=== PATIENT | female | born 1955 | race Caucasian/White ===

== ENCOUNTER 2016-07-07 14:51 | Emergency (ER) | payer OTHER ==
[2016-07-07] MEDS ORDERED: SODIUM CHLORIDE 0.9% 1,000 ML IV STA (15:41)
--- NOTE | 2016-07-07 15:44 | ED ---
General Adult HPI - General Chief complaint: Neuro Symptoms/Deficit Stated complaint: TIA Symptoms. Sent by Time Seen by Provider: 07/07/16 15:13 Source: patient, RN notes reviewed Mode of arrival: wheelchair Limitations: no limitations - History of Present Illness Initial comments: Patient is a pleasant 61-year-old female presenting to the emergency department with concern for TIA. Patient was sent by the practitioner who works for her neurologist. Patient has been leaning to the left while walking for the past 2- 3 weeks. Symptoms are intermittent. Patient is also having twitching of her right eyelid. Patient questions if she has some weakness of the right eyelid. No confusion. Patient does have a history of TIAs in the past. Patient did have lapse in memory from a time period yesterday. - Related Data Home Medications Medication Instructions Recorded Confirmed Aspirin EC [Ecotrin] 325 mg PO DAILY 07/03/14 07/07/16 Cholecalciferol [Vitamin D3] 2,000 unit PO DAILY 07/07/16 07/07/16 Cyanocobalamin (Vitamin B-12) 1,000 mcg PO DAILY 07/07/16 07/07/16 [Vitamin B-12] Levothyroxine Sodium [Synthroid] 75 mcg PO DAILY 07/07/16 07/07/16 Allergies Allergy/AdvReac Type Severity Reaction Status Date / Time azithromycin Allergy Rash/Hives Verified 07/07/16 15:38 hydrocodone bitartrate Allergy Rash/Hives Verified 07/07/16 15:38 [From Vicodin] iodine Allergy Anaphylaxis Verified 07/07/16 15:38 Sulfa (Sulfonamide Allergy Rash/Hives Verified 07/07/16 15:38 Antibiotics) Review of Systems ROS Statement: Those systems with pertinent positive or pertinent negative responses have been documented in the HPI. ROS Other: All systems not noted in ROS Statement are negative. Constitutional: Denies: fever Eyes: Denies: eye pain ENT: Denies: ear pain Respiratory: Denies: cough Cardiovascular: Denies: chest pain Endocrine: Denies: fatigue Gastrointestinal: Denies: abdominal pain Genitourinary: Denies: dysuria Musculoskeletal: Denies: back pain Skin: Denies: rash Neurological: Denies: headache Past Medical History Past Medical History: CVA/TIA, Thyroid Disorder Additional Past Medical History / Comment(s): tia 2013 with short term memory loss at times History of Any Multi-Drug Resistant Organisms: None Reported Past Surgical History: Tubal Ligation Additional Past Surgical History / Comment(s): ovarian cyst removal Past Anesthesia/Blood Transfusion Reactions: Postoperative Nausea & Vomiting ( PONV) Past Psychological History: No Psychological Hx Reported Smoking Status: Never smoker Past Alcohol Use History: Occasional Past Drug Use History: None Reported General Exam Limitations: no limitations General appearance: alert, in no apparent distress Head exam: Present: atraumatic, normocephalic Eye exam: Present: normal appearance, PERRL, EOMI. Absent: nystagmus Pupils: Present: other (No eyelid weakness) ENT exam: Present: normal oropharynx Neck exam: Present: normal inspection Respiratory exam: Present: normal lung sounds bilaterally Cardiovascular Exam: Present: regular rate, normal rhythm GI/Abdominal exam: Present: soft. Absent: tenderness Extremities exam: Present: normal inspection Neurological exam: Present: alert, oriented X3, CN II-XII intact. Absent: motor sensory deficit Expanded Patient oriented to: Present: person, place, time Speech: Present: fluid speech Cranial nerves: EOM's Intact: Normal, Facial Sensation: Normal Cerebellar function: Finger to Nose: Normal Sensory exam: Upper Extremity Light Touch: Normal, Lower Extremity Light Touch: Normal Motor strength exam: RUE: 5, LUE: 5, RLE: 5, LLE: 5 Eye Response: (4) open spontaneously Motor Response: (6) obeys commands Verbal Response: (5) oriented Psychiatric exam: Present: normal affect, normal mood Skin exam: Absent: rash Course Vital Signs 07/07/16 07/07/16 15:00 16:23 Temperature 98.1 F Pulse Rate 73 68 Respiratory 20 18 Rate Blood Pressure 129/78 141/75 O2 Sat by Pulse 100 100 Oximetry EKG Findings - EKG Comments: EKG Findings:: Normal sinus rhythm at 76. MD 112. QRS 98. QT 386. QTc 434. Normal axis. Incomplete right bundle-branch block. No acute ST change. Medical Decision Making - Medical Decision Making Patient reevaluated and resting comfortably in bed. Patient is symptom-free at this time. Patient is advised for admission and further evaluation including neurology evaluation and MRI. Patient refuses this. Patient states she has to go home secondary to work reasons. Patient refuses stay in the hospital and refuses to stay overnight. Patient is aware she will need to leave AGAINST MEDICAL ADVICE. Patient is aware of risks. Patient does demonstrate medical decision making. Patient is agreeable to close follow-up with her neurologist again. Patient states she did not actually see her neurologist today and just talk to them on the phone. - Lab Data Result diagrams: 07/07/16 15:15 07/07/16 15:15 Lab Results 07/07/16 07/07/16 07/07/16 Range/Units 15:15 15:15 15:15 WBC 4.3 (3.8-10.6) k/uL RBC 4.04 (3.80-5.40) m/uL Hgb 13.5 (11.4-16.0) gm/dL Hct 39.4 (34.0-46.0) % MCV 97.6 (80.0-100.0) fL MCH 33.4 (25.0-35.0) pg MCHC 34.2 (31.0-37.0) g/dL RDW 12.2 (11.5-15.5) % Plt Count 235 (150-450) k/uL Neutrophils % 68 % Lymphocytes % 24 % Monocytes % 5 % Eosinophils % 1 % Basophils % 0 % Neutrophils # 2.9 (1.3-7.7) k/uL Lymphocytes # 1.0 (1.0-4.8) k/uL Monocytes # 0.2 (0-1.0) k/uL Eosinophils # 0.1 (0-0.7) k/uL Basophils # 0.0 (0-0.2) k/uL PT (9.0-12.0) sec INR (<1.1) APTT (22.0-30.0) sec Sodium 140 (137-145) mmol/L Potassium 4.0 (3.5-5.1) mmol/L Chloride 100 (98-107) mmol/L Carbon Dioxide 29 (22-30) mmol/L Anion Gap 11 mmol/L BUN 9 (7-17) mg/dL Creatinine 0.77 (0.52-1.04) mg/dL Est GFR (MDRD) Af Amer >60 (>60 ml/min/1.73 sqM) Est GFR (MDRD) Non-Af >60 (>60 ml/min/1.73 sqM) Glucose 126 H (74-99) mg/dL Calcium 9.4 (8.4-10.2) mg/dL Total Bilirubin 0.7 (0.2-1.3) mg/dL AST 25 (14-36) U/L ALT 34 (9-52) U/L Alkaline Phosphatase 52 (38-126) U/L Total Creatine Kinase 55 (30-135) U/L CK-MB (CK-2) 0.7 (0.0-2.4) ng/mL CK-MB (CK-2) Rel Index 1.3 Troponin I <0.012 (0.000-0.034) ng/mL Total Protein 7.3 (6.3-8.2) g/dL Albumin 4.4 (3.5-5.0) g/dL 07/07/16 Range/Units 15:15 WBC (3.8-10.6) k/uL RBC (3.80-5.40) m/uL Hgb (11.4-16.0) gm/dL Hct (34.0-46.0) % MCV (80.0-100.0) fL MCH (25.0-35.0) pg MCHC (31.0-37.0) g/dL RDW (11.5-15.5) % Plt Count (150-450) k/uL Neutrophils % % Lymphocytes % % Monocytes % % Eosinophils % % Basophils % % Neutrophils # (1.3-7.7) k/uL Lymphocytes # (1.0-4.8) k/uL Monocytes # (0-1.0) k/uL Eosinophils # (0-0.7) k/uL Basophils # (0-0.2) k/uL PT 10.8 (9.0-12.0) sec INR 1.1 (<1.1) APTT 23.1 (22.0-30.0) sec Sodium (137-145) mmol/L Potassium (3.5-5.1) mmol/L Chloride (98-107) mmol/L Carbon Dioxide (22-30) mmol/L Anion Gap mmol/L BUN (7-17) mg/dL Creatinine (0.52-1.04) mg/dL Est GFR (MDRD) Af Amer (>60 ml/min/1.73 sqM) Est GFR (MDRD) Non-Af (>60 ml/min/1.73 sqM) Glucose (74-99) mg/dL Calcium (8.4-10.2) mg/dL Total Bilirubin (0.2-1.3) mg/dL AST (14-36) U/L ALT (9-52) U/L Alkaline Phosphatase (38-126) U/L Total Creatine Kinase (30-135) U/L CK-MB (CK-2) (0.0-2.4) ng/mL CK-MB (CK-2) Rel Index Troponin I (0.000-0.034) ng/mL Total Protein (6.3-8.2) g/dL Albumin (3.5-5.0) g/dL - Radiology Data Radiology results: image reviewed (Computed tomography scan the brain shows no acute process. Chest x-ray shows no acute process.) Disposition Clinical Impression: Transient cerebral ischemia Disposition: Left Against Medical Advice Instructions: Transient Ischemic Attack (ED) Additional Instructions: Please follow-up tomorrow with your neurologist and your primary care physician. Return for weakness, confusion, loss of sensation, speech problems, difficulty walking, worsening symptoms or other concerns. Referrals: Cezar Roy DO [Primary Care Provider] - 1-2 days Jony Alexis MD [STAFF PHYSICIAN] - 1-2 days
[2016-07-07 15:56] LABS: Basophils % (A) 0 %; CH 33.1; Eosinophils # (A) 0.1 k/uL (0-0.7); Eosinophils % (A) 1 %; HCT 39.4 % (34.0-46.0); HDW 2.37; HGB 13.5 gm/dL (11.4-16.0); Luc # (Auto) 0.09; Luc % (Auto) 2; Lymphocytes % (A) 24 %; MCH 33.4 pg (25.0-35.0); MCHC 34.2 g/dL (31.0-37.0); MCV 97.6 fL (80.0-100.0); Mean Platelet Volume 7.3; Monocytes # (A) 0.2 k/uL (0-1.0); Monocytes % (A) 5 %; Neutrophils # (A) 2.9 k/uL (1.3-7.7); Neutrophils % (A) 68 %; RBC 4.04 m/uL (3.80-5.40); RDW 12.2 % (11.5-15.5); WBC 4.3 k/uL (3.8-10.6); WBC (Perox) 4.36
[2016-07-07 16:05] LABS: ALT 34 U/L (9-52); AST 25 U/L (14-36); Alkaline Phosphatase 52 U/L (38-126); Anion Gap 11 mmol/L; Blood Urea Nitrogen 9 mg/dL (7-17); Calcium 9.4 mg/dL (8.4-10.2); Carbon Dioxide 29 mmol/L (22-30); Chloride 100 mmol/L (98-107); Glucose 126 mg/dL (74-99); Non-African American GFR(MDRD) >60 (>60 ml/min/1.73 sqM); Sodium 140 mmol/L (137-145); Total Bilirubin 0.7 mg/dL (0.2-1.3); Total Protein 7.3 g/dL (6.3-8.2)
[2016-07-07 16:10] LABS: INR 1.1 (<1.1); Partial Thromboplastin Time 23.1 sec (22.0-30.0); Prothrombin Time 10.8 sec (9.0-12.0)
[2016-07-07 16:16] LABS: Creatine Kinase 55 U/L (30-135)
--- NOTE | 2016-07-07 16:18 | XR ---
EXAMINATION TYPE: XR chest 2V DATE OF EXAM: 07/07/2016 4:09 PM COMPARISON: NONE INDICATION: Altered mental status TECHNIQUE: Single frontal view of the chest is obtained. FINDINGS: The heart size is normal. The pulmonary vasculature is normal. The lungs are clear. IMPRESSION: 1. No acute pulmonary process.
--- NOTE | 2016-07-07 16:19 | CT ---
EXAMINATION TYPE: CT brain wo con DATE OF EXAM: 07/07/2016 4:08 PM COMPARISON: 12/13/2011 INDICATION: Patient has history of TIA and has been feeling weird for the past 3 weeks DLP: 1070 mGycm, Automated exposure control for dose reduction was used. CONTRAST: None CT of the brain is performed utilizing 3 mm thick sections through the posterior fossa and 3 mm thick sections through the remaining calvarium. Study is performed within 24 hours of arrival to the hosp ital. No abnormal hyperdensity is present to suggest an acute intracranial hemorrhage. No mass lesion is evident. No acute infarcts are evident. Ventricles and sulci are appropriate for the patient age. Paranasal sinuses and mastoid air cells within the [id number] are clear. IMPRESSIONS: 1. No acute intracranial process.
[2016-07-07 16:29] LABS: Creatine Kinase MB 0.7 ng/mL (0.0-2.4); Troponin I <0.012 ng/mL (0.000-0.034)
[2016-07-07 17:18] VITALS: BP 123/74; PULSE 66; RESP 16; TEMP 97.8
== END 2016-07-07 17:18 | disposition left against medical advice (07) ==
LOC: EC 14:51
DX: G45.9 Transient cerebral ischemic attack, unspecified (principal); E07.9 Disorder of thyroid, unspecified; Z79.82 Long term (current) use of aspirin; Z79.899 Other long term (current) drug therapy; Z88.1 Allergy status to other antibiotic agents; Z88.2 Allergy status to sulfonamides; Z88.5 Allergy status to narcotic agent; Z88.8 Allergy status to other drugs, medicaments and biological substances; Z86.73 Personal history of transient ischemic attack (TIA), and cerebral infarction without residual deficits
CPT/HCPCS: 36415; 70450; 71020; 80053; 82550; 82553; 84484; 85025; 85610; 85730; 93005; 96360; 99284

== ENCOUNTER → 2016-07-21 | Outpatient (CLI) | payer OTHER ==
[2016-07-21 07:51] LABS: Basophils % (A) 1 %; CH 33.1; CHCM 33.5; Eosinophils # (A) 0.1 k/uL (0-0.7); Eosinophils % (A) 3 %; HDW 2.35; Luc % (Auto) 3; Lymphocytes # (A) 0.9 k/uL (1.0-4.8); Lymphocytes % (A) 28 %; MCH 32.3 pg (25.0-35.0); MCHC 32.5 g/dL (31.0-37.0); MCV 99.2 fL (80.0-100.0); Mean Platelet Volume 6.6; Monocytes # (A) 0.2 k/uL (0-1.0); Monocytes % (A) 6 %; Neutrophils # (A) 1.9 k/uL (1.3-7.7); Neutrophils % (A) 60 %; RBC 4.04 m/uL (3.80-5.40); RDW 12.3 % (11.5-15.5); WBC 3.2 k/uL (3.8-10.6); WBC (Perox) 3.21
[2016-07-21 10:13] LABS: ALT 41 U/L (9-52); AST 31 U/L (14-36); Alkaline Phosphatase 52 U/L (38-126); Anion Gap 8 mmol/L; Blood Urea Nitrogen 15 mg/dL (7-17); Calcium 9.4 mg/dL (8.4-10.2); Carbon Dioxide 30 mmol/L (22-30); Chloride 102 mmol/L (98-107); Cholesterol 175 mg/dL (<200); Glucose 86 mg/dL (74-99); HDL Cholesterol 93 mg/dL (40-60); Iron 106 ug/dL (37-170); Non-African American GFR(MDRD) >60 (>60 ml/min/1.73 sqM); Potassium 4.6 mmol/L (3.5-5.1); Sodium 140 mmol/L (137-145); Total Bilirubin 0.7 mg/dL (0.2-1.3); Total Protein 6.7 g/dL (6.3-8.2); Triglycerides 48 mg/dL (<150)
[2016-07-21 10:24] LABS: % Iron Saturation 34.9 % (20-50); Total Iron Binding Capacity 304 ug/dL (265-497)
[2016-07-21 11:04] LABS: Vitamin B12 864 pg/mL (239-931)
== END | disposition home or self-care (01) ==
LOC: LABWHC1 06:57
PROVIDERS: ATTEND Nurse Practitioner Acute Care
DX: G45.9 Transient cerebral ischemic attack, unspecified (principal); E55.9 Vitamin D deficiency, unspecified
CPT/HCPCS: 36415; 80053; 80061; 82306; 82607; 83090; 83540; 83550; 84207; 84439; 84443; 84466; 84481; 85025

== ENCOUNTER → 2016-07-24 | Outpatient (CLI) | payer OTHER ==
--- NOTE | 2016-07-24 14:39 | US ---
EXAMINATION TYPE: US carotid duplex BILAT DATE OF EXAM: 07/24/2016 2:26 PM COMPARISON: See PACS CLINICAL HISTORY: G45.9 TIA. EXAM MEASUREMENTS: RIGHT: Peak Systolic Velocity (PSV) cm/sec ----- Right CCA: 96.8 ----- Right ICA: 112.5 ----- Right ECA: 131.8 ICA/CCA ratio: 1.2 RIGHT: End Diastole cm/sec ----- Right CCA: 35.7 ----- Right ICA: 36.0 ----- Right ECA: 27.4 LEFT: Peak Systolic Velocity (PSV) cm/sec ----- Left CCA: 96.3 ----- Left ICA: 108.1 ----- Left ECA: 64.2 ICA/CCA ratio: 1.1 LEFT: End Diastole cm/sec ----- Left CCA: 33.3 ----- Left ICA: 40.2 ----- Left ECA: 16.2 VERTEBRALS (direction of flow): Right Vertebral: Antegrade Left Vertebral: Antegrade IMPRESSION: 1. I DO NOT SEE EVIDENCE OF A HEMODYNAMICALLY SIGNIFICANT STENOSIS IN EITHER COMMON OR INTERNAL CAROT ID ARTERY. 2. ELEVATED FLOW VELOCITY, RIGHT ECA. Criteria for Assigning % of Stenosis / Diameter reduction (Estimation based on the indirect measurements of the internal carotid artery velocities (ICA PSV). 1. Normal (no stenosis)=ICA PSV < 125 cm/s: ratio < 2.0: ICA EDV<40 cm/s. 2. Less than 50% stenosis=ICA PSV < 125 cm/s: ratio < 2.0: ICA EDV<40 cm/s. 3. 50 to 69% stenosis=ICA PSV of 125 to 230 cm/s: ration 2.0 ? 4.0: ICA EDV 40-100 cm/s. 4. Greater than 70% stenosis to near occlusion= ICA PSV > 230 cm/s: ratio > 4.0: ICA EDV > 100 cm/s. 5. Near occlusion= ICA PSV velocities may be low or undetectable: variable ratio and ICA EDV. 6. Total occlusion=unable to detect flow.
--- NOTE | 2016-07-24 16:22 | MR ---
EXAMINATION TYPE: MR brain wo con DATE OF EXAM: 07/24/2016 4:08 PM COMPARISON: CT brain July 07, 2016. MRI brain January 09, 2012. HISTORY: TIA per order. Symptoms of dizziness or hearing loss per patient with difficulty concentrati ng TECHNIQUE: Multiplanar, multisequence imaging of the brain and brainstem is performed without IV cont rast. FINDINGS: Diffusion weighted images demonstrate no evidence of a recent infarct or other diffusion abnormality. There is no worrisome extra-axial fluid collection. The ventricular system and cisternal spaces are normal in size and appearance. The brain volume is age appropriate. There are some scattered foci T2 hyperintensity seen throughout the white matter bilaterally. Approximately 10-12 scattered lesions a re present. Some progression in number of lesions is identified from prior exam. Midline structures demonstrate normal morphology. The craniocervical junction appears within normal limits. Normal vascular flow voids are present. The visualized sinuses are clear and the globes are i ntact. IMPRESSION: No evidence of a recent infarct. Mild nonspecific white matter changes likely on basis of product of chronic small vessel ischemic change with progression from 2012 MRI noted.
== END | disposition home or self-care (01) ==
LOC: RADUSWWP 14:06
PROVIDERS: ATTEND Psychiatry & Neurology Neurology
DX: R90.82 White matter disease, unspecified (principal); G45.9 Transient cerebral ischemic attack, unspecified
CPT/HCPCS: 70551; 93880

== ENCOUNTER → 2016-09-03 | Outpatient (CLI) | payer OTHER | END | disposition home or self-care (01) | LOC: LABWHC1 07:03 | PROVIDERS: ATTEND Physician Assistant Medical | DX: E03.9 Hypothyroidism, unspecified (principal) | CPT/HCPCS: 36415; 84439; 84443 ==

== ENCOUNTER → 2017-02-09 | Outpatient (CLI) | payer OTHER ==
--- NOTE | 2017-02-09 10:51 | MM ---
Reason for exam: screening (asymptomatic). Last mammogram was performed 1 year and 8 months ago. History: Patient is postmenopausal. Family history of breast cancer in mother. Physical Findings: A clinical breast exam by your physician is recommended on an annual basis and results should be correlated with mammographic findings. MG Screening Mammo w CAD Bilateral CC and MLO view(s) were taken. Prior study comparison: June 20, 2015, bilateral MG screening mammo w CAD. November 17, 2012, bilateral digital screening mammo w/CAD. The breast tissue is heterogeneously dense. This may lower the sensitivity of mammography. Finding: There are typically benign vascular, round calcifications in both breasts. There is no discrete abnormality. ASSESSMENT: Benign, BI-RAD 2 RECOMMENDATION: Routine screening mammogram of both breasts in 1 year.
== END ==
LOC: RADMAMWWP 08:52
PROVIDERS: ATTEND Obstetrics & Gynecology
DX: Z12.31 Encounter for screening mammogram for malignant neoplasm of breast (principal)

== ENCOUNTER → 2017-08-28 | Outpatient (CLI) | payer OTHER ==
[2017-08-28 09:33] LABS: T4, Free (Free Thyroxine) 1.07 ng/dL (0.78-2.19)
== END | disposition home or self-care (01) ==
LOC: LABWHC1 08:16
PROVIDERS: ATTEND Family Medicine
DX: E03.9 Hypothyroidism, unspecified (principal)
CPT/HCPCS: 36415; 84439; 84443

== ENCOUNTER → 2020-11-05 | Outpatient (CLI) | payer OTHER | END | disposition home or self-care (01) | CPT/HCPCS: 76536 ==

== ENCOUNTER → 2021-03-13 | Outpatient (CLI) | payer MEDICARE, BC ==
--- NOTE | 2021-03-13 12:26 | US ---
EXAMINATION TYPE: US thyroid st tissue head/neck DATE OF EXAM: 03/13/2021 COMPARISON: NONE CLINICAL HISTORY: R22.1Swelling mass lump in neck. follow up right lymphadenopathy lymph nodes right neck with largest = 1.3 x 0.4 x 0.9cm IMPRESSION: 1. Right neck lymphadenopathy
== END | disposition home or self-care (01) ==
LOC: RADUSWWP 09:03
PROVIDERS: ATTEND Otolaryngology
DX: R59.0 Localized enlarged lymph nodes (principal)
CPT/HCPCS: 76536

== ENCOUNTER → 2021-05-30 | Outpatient (CLI) | payer MEDICARE, BC ==
--- NOTE | 2021-05-30 12:01 | XR ---
Right foot HISTORY: Pain 3 views the right foot Mild degenerative change present at the metatarsophalangeal joint of the first digit. Bone mineraliza tion is mildly reduced. Joint spaces and alignment are otherwise maintained. IMPRESSION: Mild osteophytic change first metatarsophalangeal joint.
== END | disposition home or self-care (01) ==
LOC: RADXRYALE 11:32
PROVIDERS: ATTEND Physician Assistant
DX: M79.671 Pain in right foot (principal)

== ENCOUNTER → 2022-04-02 | Outpatient (CLI) | payer MEDICARE, BC ==
--- NOTE | 2022-04-02 17:20 | BD ---
EXAMINATION TYPE: Axial Bone Density DATE OF EXAM: 04/02/2022 COMPARISON: NONE CLINICAL HISTORY: 67 years year old Female. ICD-10 CODE: M85.9 disorder of bne density/structure, E0 3.9 69 Height: 133.3 Weight: FRAX RISK QUESTIONS: Alcohol (3 or more units per day): NO Family History (Parent hip fracture): NO Glucocorticoids (More than 3mos): NO History of Fracture in Adulthood: NO Secondary Osteoporosis: 1. Type 1 Diabetes: NO 2. Hyperthyroidism: NO 3. Menopause before 45: NO 4. Malnutrition: NO 5. Chronic liver disease: NO Rheumatoid Arthritis: NO Current Tobacco Use: NO RISK FACTORS HISTORY OF: Hip Fracture (Right/Left): NO Spine Fracture: NO History of Wrist Fracture: NO Surgery to Spine/Hip(right/left)/Wrist (right/left): NO Family History of Osteoporosis: NO Active: YES Diet low in dairy products/other sources of calcium: YES Postmenopausal woman: YES Take estrogen and/or progesterone medications: NO Lost more than 2 inches in height since high school: NO Frequent falls: NO Poor Health: NO Hyperparathyroidism: NO Adrenal Insufficiency: NO MEDICATIONS: Prednisone or other steroids: NO Thyroid Medications: ARMOUR How Long: ABOUT 15 YEARS Osteoporosis Medications: NO Additional Medications: ARMOUR, VIT D, B12, MAGNESIUM, EXAM MEASUREMENTS: Bone mineral densitometry was performed using the [employer] System. Bone mineral density as measured about the Lumbar spine is: ----- L1-L4(G/cm2): 0.937 T Score Values are as follows: ----- L1: -1.8 ----- L2: -2.3 ----- L3: -1.7 ----- L4: -2.4 ----- L1-L4: -2.0 BASELINE STUDY Bone mineral density about the R hip (g/cm2): 0.853 Bone mineral density about the L hip (g/cm2): 0.842 T Score values are as follows: -----R Neck: -1.3 -----L Neck: -1.4 -----R Total: -1.3 -----L Total: -1.6 BASELINE STUDY FRAX%s: The graph provided illustrates a 3.5% chance for a major osteoporotic fx and a 0.7% chance fo r the hips probability for fx in 10 years time. IMPRESSION: Osteopenia (T Score between -2.5 and -1). There is slightly increased risk of fracture and the patient may be considered for treatment. Re-Screen 2-5 years. NOTE: T-SCORE=SD OF THE YOUNG ADULT MEAN.
== END | disposition home or self-care (01) ==
LOC: RADBDWWP 07:16
PROVIDERS: ATTEND Family Medicine
DX: M85.89 Other specified disorders of bone density and structure, multiple sites (principal); E03.9 Hypothyroidism, unspecified
CPT/HCPCS: 77080

== ENCOUNTER 2022-08-17 10:38 | Day surgery (SDC) | payer MEDICARE, BC ==
[2022-08-12 09:24] VITALS: BMI 20.2
[~2022-08-17 10:38] MED LIST: SODIUM CHLORIDE 0.9% 1,000 ML IV SCH
[2022-08-17] MEDS ORDERED: SODIUM CHLORIDE 0.9% 500 ML 500 ML IV ONE (11:06)
[2022-08-17] MEDS ORDERED: LIDOCAINE 1% INJ 10MG/ML (20 ML MDV) SQ ONE (12:41)
[2022-08-17] MEDS ORDERED: LIDOCAINE 1% INJ 10MG/ML (20 ML MDV) ONE (12:41)
--- NOTE | 2022-08-17 13:02 | P.PCN ---
Description of Procedure: Procedure: Explant of Linq loop recorder Indication: Loop recorder, patient desired to have explanted, end of battery life CONSENT:I have discussed the risks, benefits and alternative therapies for the above-mentioned procedure. The patient has indicated understanding and acceptance of the risks and procedures discussed. PROCEDURE: Patient was brought to the catheterization lab in a fasting state. Patient was prepped and draped in the usual fashion. 1% lidocaine was used to anesthetize the area of the left third intercostal space above the existing loop recorder. A small 0.5 cm incision was made with 15 blade. Next the Linq loop recorder was grasped and withdrawn. Next the incision was closed using Dermabond. Steristrips were placed over the incision and the procedure was completed. The patient tolerated the procedure well. The patient was transported to the post cath holding area in stable condition.
[2022-08-17 13:33] VITALS: BP 148/69; PULSE 71; RESP 16; TEMP 97.6
== END 2022-08-17 13:13 | disposition home or self-care (01) ==
LOC: CATHEP 10:38
PROVIDERS: ATTEND Internal Medicine
DX: Z45.010 Encounter for checking and testing of cardiac pacemaker pulse generator [battery] (principal); R00.2 Palpitations
CPT/HCPCS: 33286; J0690; J2001

== ENCOUNTER 2022-11-10 08:23 | Day surgery (SDC) | payer MEDICARE, BC ==
[2022-11-04 09:54] VITALS: BMI 19.2
[~2022-11-10 08:23] MED LIST changes: +LACTATED RINGERS 1,000 ML IV SCH; +LIDOCAINE 1% (10MG/ML) FOR IV START INTRADERMA PRN; -SODIUM CHLORIDE 0.9% 1,000 ML IV SCH
[2022-11-10 08:48] VITALS: RESP 16; TEMP 98.4
[2022-11-10] MEDS ORDERED: PROPOFOL 10 MG/ML 20 ML VIAL IV ONE (08:50)
--- NOTE | 2022-11-10 08:53 | P.GSHP ---
History of Present Illness H&P Date: 11/10/22 Chief Complaint: Colon cancer screening 67-year-old female here today for colonoscopy. As colonoscopy 11 years ago. No bowel complaints. No family history of colon cancer. Past Medical History Past Medical History: CVA/TIA, Thyroid Disorder Additional Past Medical History / Comment(s): tia 2012 with short term memory loss at times History of Any Multi-Drug Resistant Organisms: None Reported Past Surgical History: Tubal Ligation Additional Past Surgical History / Comment(s): ovarian cyst removal , colonoscopy Past Anesthesia/Blood Transfusion Reactions: Postoperative Nausea & Vomiting (PONV) Smoking Status: Never smoker - Past Family History Mother Family Medical History: Cancer Additional Family Medical History / Comment(s): breast Father Additional Family Medical History / Comment(s): tia strokes Medications and Allergies Home Medications Medication Instructions Recorded Confirmed Type Aspirin [Adult Low Dose Aspirin EC] 81 mg PO HS 08/12/22 11/10/22 History Thyroid,Pork [[place] Thyroid] 90 mg PO DAILY 08/12/22 11/10/22 History Allergies Allergy/AdvReac Type Severity Reaction Status Date / Time azithromycin Allergy Rash/Hives Verified 11/10/22 08:40 hydrocodone bitartrate Allergy Rash/Hives Verified 11/10/22 08:40 [From Vicodin] Iodinated Contrast Media Allergy Anaphylaxis Verified 11/10/22 08:40 iodine Allergy Anaphylaxis Verified 11/10/22 08:40 Sulfa (Sulfonamide Allergy Rash/Hives Verified 11/10/22 08:40 Antibiotics) Surgical - Exam Vital Signs Temp Pulse Resp BP Pulse Ox 98.4 F 95 16 122/76 99 11/10/22 08:40 11/10/22 08:40 11/10/22 08:40 11/10/22 08:40 11/10/22 08:40 Physical exam: General: Well-developed, well-nourished HEENT: Normocephalic, sclerae nonicteric Abdomen: Nontender, nondistended Extremities: No edema Neuro: Alert and oriented Assessment and Plan (1) Colon cancer screening Narrative/Plan: Will proceed with colonoscopy at this time. Current Visit: Yes Status: Acute Code(s): Z12.11 - ENCOUNTER FOR SCREENING FOR MALIGNANT NEOPLASM OF COLON SNOMED Code(s): 619624266
--- NOTE | 2022-11-10 09:07 | P.PCN ---
Date of Procedure: 11/10/22 Procedure(s) Performed: PREOPERATIVE DIAGNOSIS: Colon cancer screening POSTOPERATIVE DIAGNOSIS: Diverticulosis PROCEDURE: Colonoscopy ANESTHESIA: MAC SURGEON: Lm Cedeno M.D. SPECIMENS: None ENDOSCOPIC PROCEDURE: The patient was placed on the endoscopy table in the left decubitus position. The Olympus colonoscope was inserted into the anus and passed under direct visualization to the base of the cecum. The appendiceal orifice was visualized. From that point the scope was slowly withdrawn inspe cting all surfaces carefully. There were no neoplastic inflammatory or polypoid lesions throughout the cecum, ascending, transverse, descending, sigmoid and rectum. There was mild scattered left sided diverticulosis noted. Digital rectal examination was normal. The patient was taken to the recovery room in stable condition per anesthesia guidelines. RECOMMENDATIONS: Resume diet. Repeat colonoscopy in 10 years.
[2022-11-10 09:35] VITALS: BP 115/76; PULSE 66
== END 2022-11-10 10:06 | disposition home or self-care (01) ==
LOC: ORWHC2ENDO 08:23
PROVIDERS: ATTEND Surgery
DX: Z12.11 Encounter for screening for malignant neoplasm of colon (principal); K57.30 Diverticulosis of large intestine without perforation or abscess without bleeding; Z86.73 Personal history of transient ischemic attack (TIA), and cerebral infarction without residual deficits; Z98.51 Tubal ligation status; Z82.3 Family history of stroke; Z79.82 Long term (current) use of aspirin; Z79.890 Hormone replacement therapy; Z88.5 Allergy status to narcotic agent; Z79.899 Other long term (current) drug therapy; Z88.2 Allergy status to sulfonamides
CPT/HCPCS: G0121; J2704; 45378

== ENCOUNTER 2023-02-01 22:55 | Emergency (ER) | payer MEDICARE, BC ==
[2023-02-01] MEDS ORDERED: HYDROmorphone 1 MG/ML 1 ML SYRINGE IM STA (23:53)
[2023-02-01] MEDS ORDERED: ACET/COD 300 MG/30 MG STARTER PACK 6 TAB BTL PO STA (23:54)
[2023-02-01] MEDS ORDERED: AMOXIC-POT CLAV 875-125MG 1 EACH TAB PO STA (23:54)
[2023-02-01] MEDS ORDERED: DIPH,PERTUS(ACELL)TETVAC-LF 0.5 ML VIAL IM ONE (23:54)
[2023-02-01] MEDS ORDERED: AMOXIC-POT CLAV 875MG STARTER PACK 2 TAB BTL PO STA (23:54)
[2023-02-01] MEDS ORDERED: GELATIN SPONGE,ABSORB (LARGE) 1 EACH SPONGE TOPICAL STA (23:55)
[2023-02-01] MEDS ORDERED: GELATIN SPONGE,ABSORB (SMALL) 1 EACH SPONGE TOPICAL STA (23:55)
--- NOTE | 2023-02-01 23:56 | ED ---
Animal Bite HPI - General Chief Complaint: Animal Bite Stated Complaint: dog bite Time Seen by Provider: 02/01/23 23:41 Source: family, RN notes reviewed, old records reviewed Mode of arrival: ambulatory Limitations: no limitations - History of Present Illness Initial Comments: This is a 68-year-old female return to the emergency room for evaluation a dog bite. Patient presents today for evaluation regards to severe right thumb pain. Patient with the dog [the patient allegedly and bit the patient's thumb. Patient admits to the top of her thumb with severe pain and bleeding. No blood thinners. No other complaints or injuries. This thought with patient's own dog as a rescue MD Complaint: animal bite -: minutes(s) Right: Hand (Thumb) Animal: dog Description: household pet Mechanism: bite Pain Description: sharp Severity scale (1-10): 10 Context: unprovoked (Unprovoked although patient was being put in his great and she did move the patella) Associated Symptoms: bleeding Treatments Prior to Arrival: wound dressing(s) - Related Data Home Medications Medication Instructions Recorded Confirmed Aspirin [Adult Low Dose Aspirin EC] 81 mg PO HS 08/12/22 11/10/22 Thyroid,Pork [[place] Thyroid] 90 mg PO DAILY 08/12/22 11/10/22 Previous Rx's Medication Instructions Recorded Amoxic-Pot Clav 875-125Mg 1 tab PO Q12HR #20 tablet 02/01/23 [Augmentin 875-125] Allergies Allergy/AdvReac Type Severity Reaction Status Date / Time azithromycin Allergy Rash/Hives Verified 02/01/23 23:18 hydrocodone bitartrate Allergy Rash/Hives Verified 02/01/23 23:18 [From Vicodin] Iodinated Contrast Media Allergy Anaphylaxis Verified 02/01/23 23:18 iodine Allergy Anaphylaxis Verified 02/01/23 23:18 Sulfa (Sulfonamide Allergy Rash/Hives Verified 02/01/23 23:18 Antibiotics) Review of Systems ROS Statement: Those systems with pertinent positive or pertinent negative responses have been documented in the HPI. ROS Other: All systems not noted in ROS Statement are negative. Past Medical History Past Medical History: CVA/TIA, Thyroid Disorder Additional Past Medical History / Comment(s): multiple TIA'S with short term memory loss at times History of Any Multi-Drug Resistant Organisms: None Reported Past Surgical History: Tubal Ligation Additional Past Surgical History / Comment(s): ovarian cyst removal , colonoscopy Past Anesthesia/Blood Transfusion Reactions: Postoperative Nausea & Vomiting (PONV) Past Psychological History: No Psychological Hx Reported Smoking Status: Current some day smoker, Never smoker Past Alcohol Use History: None Reported, Occasional Past Drug Use History: None Reported - Past Family History Mother Family Medical History: Cancer Additional Family Medical History / Comment(s): breast Father Additional Family Medical History / Comment(s): tia strokes General Exam - General Exam Comments Initial Comments: 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 Absent: scleral icterus, conjunctival injection, periorbital swelling ENT exam: Present: normal exam, mucous membranes moist Neck exam: Present: normal inspection. Absent: tenderness, meningismus, lym phadenopathy Respiratory exam: Present: normal lung sounds bilaterally. Absent: respiratory distress, wheezes, rales, rhonchi, stridor Cardiovascular Exam: Present: regular rate, normal rhythm, normal heart sounds. Absent: systolic murmur, diastolic murmur, rubs, gallop, clicks GI/Abdominal exam: Present: soft, normal bowel sounds. Absent: distended, tenderness, guarding, rebound, rigid Extremities exam: Present: normal inspection, full ROM, normal capillary refill. Absent: tenderness, pedal edema, joint swelling, calf tenderness Back exam: Present: normal inspection Neurological exam: Present: alert, oriented X3, CN II-XII intact Psychiatric exam: Present: normal affect, normal mood Skin exam: Present: warm, dry, intact, normal color. Absent: rash Course Vital Signs 02/01/23 02/02/23 23:16 01:30 Temperature 98.7 F 98.2 F Pulse Rate 90 78 Respiratory 18 16 Rate Blood Pressure 145/84 128/78 O2 Sat by Pulse 99 96 Oximetry - Reevaluation(s) Reevaluation #1: 02/02/23 01:02 Record is reviewed Reevaluation #2: 02/02/23 01:02 Patient symptoms are improved Reevaluation #3: 02/02/23 01:02 Patient informed results questions answered Reevaluation #4: 02/02/23 01:02 Was pt. sent in by a medical professional or institution (, PA, AIRLINE PILOT FLIGHT INSTRUCTOR, urgent care, hospital, or longterm...) When possible be specific @ -no Did you speak to anyone other than the patient for history (EMS, parent, family, police, friend...)? What history was obtained from this source @ -no Did you review nursing and triage notes (agree or disagree)? Why? @ -agree Are old charts reviewed (outside hosp., previous admission, EMS record, old EKG, old radiological studies, urgent care reports/EKG's, longterm records)? Report findings @ -yes Differential Diagnosis (chest pain, altered mental status, abdominal pain women, abdominal pain men, vaginal bleeding, weakness, fever, dyspnea, syncope, headache, dizziness, GI bleed, back pain, seizure, CVA, palpatations, mental health, musculoskeletal)? @ -prior EKG interpreted by me (3pts min.). @ -no X-rays interpreted by me (1pt min.). @ -yes CT interpreted by me (1pt min.). @ -no U/S interpreted by me (1pt. min.). @ -no What testing was considered but not performed or refused? (CT, X-rays, U/S, labs)? Why? @ -none What meds were considered but not given or refused? Why? @ -none Did you discuss the management of the patient with other professionals (arianne comer i.e. , PA, AIRLINE PILOT FLIGHT INSTRUCTOR, lab, RT, psych nurse, child welfare social worker, chief engineer production, teacher, conservation enforcement officer, lining caser)? Give summary @ -no Was smoking cessation discussed for >3mins.? @ -no Was critical care preformed (if so, how long)? @ -no Were there social determinants of health that impacted care today? How? (Homelessness, low income, unemployed, alcoholism, drug addiction, transportation, low edu. Level, literacy, decrease access to med. care, mcc, rehab)? @ -none Was there de-escalation of care discussed even if they declined (Discuss DNR or withdrawal of care, Hospice)? DNR status @ -no What co-morbidities impacted this encounter? (DM, HTN, Smoking, COPD, CAD, Cancer, CVA, ARF, Chemo, Hep., AIDS, mental health diagnosis, sleep apnea, morbid obesity)? @ -none Was patient admitted / discharged? Hospital course, mention meds given and route, prescriptions, significant lab abnormalities, going to OR and other pertinent info. @ - 68 female to the emergency department for evaluation. Patient presents today for evaluation regards to traumatic amputation of the distal aspect of right thumb. Patient has bandages placed here in the ER will follow-up with orthopedics for further evaluation and treatment. Discharge Undiagnosed new problem with uncertain prognosis? @ -no Drug Therapy requiring intensive monitoring for toxicity (Heparin, Nitro, Insulin, Cardizem)? @ -no Were any procedures done? @ -no Diagnosis/symptom? @ -Traumatic Dictation right thumb Acute, or Chronic, or Acute on Chronic? @ -Acute Uncomplicated (without systemic symptoms) or Complicated (systemic symptoms)? @ -Complicated Side effects of treatment? @ -no Exacerbation, Progression, or Severe Exacerbation? @ -exacerbation Poses a threat to life or bodily function? How? (Chest pain, [place], OR, pneumonia, PE, COPD, DKA, ARF, appy, cholecystitis, CVA, Diverticulitis, Homicidal, Suicidal, threat to staff... and all critical care pts) @ -yes loss of limb Medical Decision Making - Medical Decision Making 68 female to the emergency department for evaluation. Patient presents today for evaluation regards to traumatic amputation of the distal aspect of right thumb. Patient has bandages placed here in the ER will follow-up with orthopedics for further evaluation and treatment. - Radiology Data Radiology results: report reviewed (X-ray right hand does show distal thumb fracture), image reviewed Disposition Clinical Impression: Dog bite, Traumatic amputation of right thumb Disposition: HOME SELF-CARE Instructions (If sedation given, give patient instructions): Animal Bite (ED) Prescriptions: Amoxic-Pot Clav 875-125Mg [Augmentin 875-125] 1 tab PO Q12HR #20 tablet Is patient prescribed a controlled substance at d/c from ED?: No Referrals: Rajendra Priest DO [Doctor of Osteopathic Medicine] - 1-2 days Time of Disposition: 00:25
[2023-02-02 01:35] VITALS: BP 128/78; PULSE 78; RESP 16; TEMP 98.2
--- NOTE | 2023-02-02 03:42 | XR ---
EXAM: XR Right Fingers, 2 or More Views CLINICAL HISTORY: ITS.REASON XR Reason: animal bite TECHNIQUE: Frontal, lateral and oblique views of the fingers of the right hand. COMPARISON: No relevant prior studies available. FINDINGS: Bones/joints: Partial amputation of the tip of the thumb. The bone is exposed. Tiny chip fracture of the first distal phalangeal tuft. No dislocation. Soft tissues: Unremarkable. No radiopaque foreign body. IMPRESSION: Partial amputation of the tip of the thumb. The bone is exposed. Tiny chip fracture of the first distal phalangeal tuft. No dislocation.
== END 2023-02-02 01:33 | disposition home or self-care (01) ==
LOC: EC 22:55
DX: S68.52 Partial traumatic transphalangeal amputation of thumb (principal); E07.9 Disorder of thyroid, unspecified; F17.200 Nicotine dependence, unspecified, uncomplicated; Z23 Encounter for immunization; Z79.890 Hormone replacement therapy; Z79.82 Long term (current) use of aspirin; Z88.1 Allergy status to other antibiotic agents; Z88.2 Allergy status to sulfonamides; Z88.5 Allergy status to narcotic agent; Z91.09 Other allergy status, other than to drugs and biological substances; Z91.041 Radiographic dye allergy status; Z86.73 Personal history of transient ischemic attack (TIA), and cerebral infarction without residual deficits; W54.0XXA Bitten by dog, initial encounter
CPT/HCPCS: 73140; 90715; 99284; 96372; 90471; J1170

== ENCOUNTER → 2023-06-17 | Outpatient (CLI) | payer MEDICARE, BC ==
--- NOTE | 2023-06-17 08:57 | CT ---
EXAMINATION TYPE: CT chest wo con CT DLP: 422 mGycm, Automated exposure control for dose reduction was used. DATE OF EXAM: 06/17/2023 8:25 AM COMPARISON: None CLINICAL INDICATION:Female, 68 years old with history of R911 SPN, lung nodule TECHNIQUE: Multiple axial images were obtained through the chest. Sagittal and coronal reformats were created for review. Contrast used: mL of (None if empty) Oral contrast used: (None if empty) FINDINGS: LUNGS/ PLEURA: Left lower lobe 6 mm pulmonary nodule. Mild centrilobular emphysema changes. No eviden ce for focal consolidation, pneumothorax or pleural effusion. AIRWAY: Patent and unremarkable. HEART: Size within normal limits. MEDIASTINUM: No gross evidence of adenopathy. VASCULATURE: No aortic aneurysm. MUSCULOSKELETAL: Mild disc degeneration changes are present throughout the thoracolumbar spine. SOFT TISSUES/LYMPH NODES: Unremarkable. LOWER NECK: No significant findings. UPPER ABDOMEN: No significant findings. IMPRESSION: Left lower lobe posterior 6 mm pulmonary nodule. In accordance with Fleischner Society guidelines. In a 6-[address] thorax can be considered. No priors are available for comparison. No eviden ce for acute process. Follow up recommendations for incidental pulmonary nodules, if there are any, are per Fleischner?s [place] [employer] [employer] or [place]. https://radiopaedia.org/articles/gneibusfwb-[email or web address]-[email or web address]?lang=us
== END | disposition home or self-care (01) ==
LOC: RADCTMAIN 07:48
PROVIDERS: ATTEND Family Medicine
DX: R91.1 Solitary pulmonary nodule (principal)
CPT/HCPCS: 71250

== ENCOUNTER → 2023-10-18 | Outpatient (CLI) | payer MEDICARE, BC ==
--- NOTE | 2023-10-18 10:58 | XR ---
EXAMINATION TYPE: XR shoulder complete RT DATE OF EXAM: 10/18/2023 10:53 AM CLINICAL INDICATION:Female, 68 years old with history of [id number] RT SHLD PAIN; [facility] COMPARISON: None TECHNIQUE: XR shoulder complete RT; examined in AP, internally rotated and scapular Y projections. FINDINGS: No evidence of acute osseous pathology, joint dislocation, or soft tissue swelling. The remaining po rtions of the visualized chest are unremarkable. Mild degeneration changes of the acromion, distal c lavicle with osteophyte formation. There is osteophyte formation of the glenoid and humeral head. The re is joint space narrowing of glenohumeral joint. IMPRESSION: 1. No acute osseous pathology. 2. Mild shoulder osteoarthrosis.
== END | disposition home or self-care (01) ==
LOC: RADXRYALE 10:33
PROVIDERS: ATTEND Physician Assistant Medical
DX: M19.011 Primary osteoarthritis, right shoulder (principal)

== ENCOUNTER → 2023-10-29 | Outpatient (CLI) | payer MEDICARE, BC ==
--- NOTE | 2023-10-29 22:40 | US ---
EXAMINATION TYPE: US abdomen complete DATE OF EXAM: 10/29/2023 COMPARISON: NONE CLINICAL INDICATION: Female, 68 years old with history of R10.84 GEN ABD PAIN; Abdominal pain TECHNIQUE: Multiple sonographic images of the abdomen are obtained. FINDINGS: EXAM MEASUREMENTS: Liver Length: 15.6 cm Gallbladder Wall: 0.2 cm CBD: 0.3 cm Spleen: 8.6 cm Right Kidney: 9.5 x 3.2 x 4.5 cm Left Kidney: 10.7 x 4.5 x 3.9 cm Pancreas: Obscured by bowel gas Liver: wnl Gallbladder: no evidence of stones Evidence for sonographic Foy's sign: no CBD: wnl Spleen: wnl Right Kidney: no evidence of hydronephrosis Left Kidney: no evidence of hydronephrosis Abd Aorta: wnl The liver is homogenous. The intrahepatic portion of the IVC and proximal abdominal aorta are within normal limits. There is no evidence of cholelithiasis. Common bile duct is unremarkable. The panc reas is obscured by overlying bowel gas. The spleen is unremarkable. Kidneys are symmetric and free of hydronephrosis. No renal lesions are seen. IMPRESSION: Unremarkable abdominal ultrasound.
== END | disposition home or self-care (01) ==
LOC: RADUSWWP 07:21
PROVIDERS: ATTEND Family Medicine
DX: R10.84 Generalized abdominal pain (principal)
CPT/HCPCS: 76700

== ENCOUNTER → 2023-12-27 | Outpatient (CLI) | payer MEDICARE, BC ==
--- NOTE | 2023-12-27 09:51 | CT ---
EXAMINATION TYPE: CT chest wo con DATE OF EXAM: 12/27/2023 COMPARISON: 06/17/2023 HISTORY: 68-year-old female R91.1, solitary pulmonary nodule TECHNIQUE: CT of the chest without contrast. Coronal/sagittal reconstructions performed. CT DLP: 158.6mGycm. Automatic exposure control utilized for a dose reduction. FINDINGS: Heart normal size without pericardial effusion. Aorta normal caliber with conventional arch vessel branching anatomy. No thoracic lymphadenopathy by CT size criteria. Biapical pleuroparenchymal scarring has a stable configuration Few scattered tiny 3 to 4 mm areas of subpleural nodularity on both sides in the mid and lower lungs remain unchanged. 6 mm subpleural pulmonary nodule posterior left lower lobe, axial image 41 is unchanged. 4 mm subpleural pulmonary nodule medial right lower lobe, axial image 39 is unchanged. Visualized upper abdomen shows bilateral extrarenal pelves. Moderate degenerative disc disease noted at C7-T1. IMPRESSION: Unchanged biapical pleural-parenchymal scarring and a few scattered 6 mm and smaller pulmonary nodule s. Findings suggest a benign etiology. Recommend additional one-year surveillance follow-up to demons trate more long-term stability.
== END | disposition home or self-care (01) ==
LOC: RADCTMAIN 08:55
PROVIDERS: ATTEND Family Medicine
DX: R91.1 Solitary pulmonary nodule
CPT/HCPCS: 71250